=== PATIENT | female | born 1935 | race Caucasian/White ===

== ENCOUNTER → 2016-06-12 | Outpatient (CLI) | payer MEDICARE ==
[~2016-06-12] MED LIST: ATEN-102 PO; DIOV80TA2 PO; RANI150T PO; SIMV10TA OR; SULF1TAB47 PO
[2016-06-12 09:24] LABS: HEMATOCRIT 40.1 % (35.0-46.0); MEAN CELL VOLUME 96.3 FL (80.0-100.0); MEAN CORPUSCULAR HEMOGLOBIN 31.6 PG (27.0-34.0); MEAN CORPUSCULAR HGB CONC 32.8 % (32.0-36.0); PLATELET COUNT 145 TH/MM3 (150-450); RED BLOOD COUNT 4.16 MIL/MM3 (4.00-5.30); RED CELL DISTRIBUTION WIDTH 12.6 % (11.6-17.2); REVIEW FLAG FINAL
[2016-06-12 09:53] LABS: ALKALINE PHOSPHATASE 65 U/L (45-117); ALT (GPT) 26 U/L (10-53); ANION GAP 7 MEQ/L (5-15); AST (GOT) 24 U/L (15-37); BICARBONATE 30.4 MEQ/L (21.0-32.0); BLOOD UREA NITROGEN 22 MG/DL (7-18); CHLORIDE 105 MEQ/L (98-107); GLOMERULAR FILTRATION RATE 67 ML/MIN (>89); GLUCOSE,FASTING 105 MG/DL (74-99); HDL CHOLESTEROL 81.7 MG/DL (40.0-60.0); LDL CHOLESTEROL 93 MG/DL (0-99); LDL CHOLESTEROL DIRECT 114 MG/DL (0-99); POTASSIUM 4.8 MEQ/L (3.5-5.1); SODIUM (NA) 142 MEQ/L (136-145); TOTAL BILIRUBIN ADULT 0.5 MG/DL (0.2-1.0)
== END ==
LOC: PLAB 07:40
PROVIDERS: ATTEND Internal Medicine
DX: I10 Essential (primary) hypertension (principal); E78.5 Hyperlipidemia, unspecified
CPT/HCPCS: 36415; 80053; 80061; 83721; 85027

== ENCOUNTER → 2016-12-07 | Outpatient (CLI) | payer MEDICARE ==
[2016-12-07 09:28] LABS: HEMATOCRIT 36.6 % (35.0-46.0); MEAN CELL VOLUME 95.7 FL (80.0-100.0); MEAN CORPUSCULAR HGB CONC 33.5 % (32.0-36.0); PLATELET COUNT 127 TH/MM3 (150-450); RED BLOOD COUNT 3.82 MIL/MM3 (4.00-5.30); RED CELL DISTRIBUTION WIDTH 12.2 % (11.6-17.2); REVIEW FLAG FINAL; WHITE BLOOD COUNT 4.8 TH/MM3 (4.0-11.0)
[2016-12-07 09:50] LABS: ANION GAP 5 MEQ/L (5-15); AST (GOT) 17 U/L (15-37); BICARBONATE 29.7 MEQ/L (21.0-32.0); BLOOD UREA NITROGEN 22 MG/DL (7-18); CHLORIDE 104 MEQ/L (98-107); GLOMERULAR FILTRATION RATE 76 ML/MIN (>89); GLUCOSE,FASTING 82 MG/DL (74-99); POTASSIUM 4.1 MEQ/L (3.5-5.1); SODIUM (NA) 139 MEQ/L (136-145)
[2016-12-07 09:59] LABS: ALKALINE PHOSPHATASE 65 U/L (45-117); ALT (GPT) 17 U/L (10-53); HDL CHOLESTEROL 69.5 MG/DL (40.0-60.0); LDL CHOLESTEROL 89 MG/DL (0-99); LDL CHOLESTEROL DIRECT 98 MG/DL (0-99); TOTAL BILIRUBIN ADULT 0.5 MG/DL (0.2-1.0)
== END ==
LOC: PLAB 07:50
PROVIDERS: ATTEND Internal Medicine
DX: I10 Essential (primary) hypertension (principal); E78.5 Hyperlipidemia, unspecified
CPT/HCPCS: 36415; 80053; 80061; 83721; 85027

== ENCOUNTER → 2017-06-11 | Outpatient (CLI) | payer MEDICARE ==
[2017-06-11 10:27] LABS: HEMATOCRIT 37.8 % (35.0-46.0); HEMOGLOBIN 12.7 GM/DL (11.6-15.3); MEAN CELL VOLUME 94.3 FL (80.0-100.0); MEAN CORPUSCULAR HEMOGLOBIN 31.6 PG (27.0-34.0); MEAN CORPUSCULAR HGB CONC 33.5 % (32.0-36.0); MEAN PLATELET VOLUME 11.5 FL (7.0-11.0); PLATELET COUNT 128 TH/MM3 (150-450); RED BLOOD COUNT 4.01 MIL/MM3 (4.00-5.30); WHITE BLOOD COUNT 4.9 TH/MM3 (4.0-11.0)
[2017-06-11 10:29] LABS: ALBUMIN 3.8 GM/DL (3.4-5.0); AST (GOT) 18 U/L (15-37); BICARBONATE 30.1 MEQ/L (21.0-32.0); BLOOD UREA NITROGEN 25 MG/DL (7-18); CALCIUM 8.8 MG/DL (8.5-10.1); CHLORIDE 108 MEQ/L (98-107); CHOLESTEROL 187 MG/DL (120-200); CREATININE 0.83 MG/DL (0.50-1.00); GLOMERULAR FILTRATION RATE 66 ML/MIN (>89); GLUCOSE,FASTING 89 MG/DL (74-99); SODIUM (NA) 141 MEQ/L (136-145)
[2017-06-11 10:38] LABS: ALKALINE PHOSPHATASE 69 U/L (45-117); ALT (GPT) 22 U/L (10-53); CHOLESTEROL/ HDL RATIO 2.72 RATIO; FREE T4 1.26 NG/DL (0.76-1.46); HDL CHOLESTEROL 68.7 MG/DL (40.0-60.0); LDL CHOLESTEROL 92 MG/DL (0-99); LDL CHOLESTEROL DIRECT 109 MG/DL (0-99); TOTAL BILIRUBIN ADULT 0.7 MG/DL (0.2-1.0); TOTAL PROTEIN 7.3 GM/DL (6.4-8.2); TRIGLYCERIDES 133 MG/DL (42-150)
== END ==
LOC: PLAB 07:19
PROVIDERS: ATTEND Internal Medicine
DX: I10 Essential (primary) hypertension (principal); E03.9 Hypothyroidism, unspecified
CPT/HCPCS: 36415; 80053; 80061; 83721; 84439; 84443; 85027

== ENCOUNTER 2017-09-30 07:45 | Observation (INO) ==
[2017-09-30 08:52] LABS: Baso % (Auto) 0.6 % (0.0-2.0); Eos # (Auto) 0.1 th/mm3 (0.0-0.4); Eos % (Auto) 2.2 % (0.0-4.0); Hematocrit 40.2 % (35.0-46.0); Lymph # (Auto) 0.7 th/mm3 (1.0-4.8); Lymph % (Auto) 14.8 % (9.0-44.0); Mean Corpuscular HGB Conc 32.2 % (32.0-36.0); Mean Corpuscular Hemoglobin 31.1 pg (27.0-34.0); Mean Corpuscular Volume 96.3 fL (80.0-100.0); Mono # (Auto) 0.3 th/mm3 (0.0-0.9); Mono % (Auto) 5.7 % (0.0-8.0); Neut # (Auto) 3.5 th/mm3 (1.8-7.7); Neut % (Auto) 76.7 % (16.0-70.0); Platelet Count 134 th/mm3 (150-450); Red Blood Count 4.17 mil/mm3 (4.00-5.30); White Blood Count 4.6 th/mm3 (4.0-11.0)
--- NOTE | 2017-09-30 08:54 | ED ---
HPI General Chief Complaint: Arrhythmia/Palpitations Stated Complaint: Palpitations Time Seen by Provider: 09/30/17 08:22 Source: patient Mode of arrival: ambulatory Limitations: no limitations History of Present Illness HPI narrative: Patient is an 82-year-old female who presents the emergency room with complaints of palpitations. Patient reports that she woke up around 1 AM this morning from sleep with palpitations to the left side of her chest. Patient reports that the palpitations were nonradiating in nature, reports that they were persistent so she got up and sat in her chair. Reports that the palpitations lasted about 1-1/2 hours and resolved on its own. During this episode, she did feel "hot" with her symptoms. Patient reports that she did not have any nausea or vomiting with her symptoms. Patient does have history of thyroid problems as well as hypertension and hyperlipidemia, she does not see a anchor tacker. Patient reports that the last time she has the symptoms was 3 months ago, she diagnosed herself with the flu. Related Data Home Medications Medication Instructions Recorded Confirmed aspirin [Aspirin Low Dose] 81 mg PO DAILY 09/30/17 09/30/17 atenolol 50 mg PO DAILY 09/30/17 09/30/17 levothyroxine 100 mcg PO DAILY 09/30/17 09/30/17 ranitidine HCl 300 mg PO DAILY 09/30/17 09/30/17 simvastatin 10 mg PO QPM 09/30/17 09/30/17 Allergies Allergy/AdvReac Type Severity Reaction Status Date / Time lisinopril Allergy Severe Rash Unverified 09/30/17 07:50 Review of Systems Except as stated in HPI: all other systems reviewed are negative [facility] Medical History Medical History GERD (gastroesophageal reflux disease) (Acute) High cholesterol (Acute) Hypertension (Acute) Hypothyroid (Acute) Surgical History Surgical History H/O lumpectomy (Acute) Hx of appendectomy (Acute) Hx of cholecystectomy (Acute) Social History Social History Substance History: No History of Abuse Smoking Status: Never smoker How Often Do You Have a Drink Containing Alcohol: Never Recent Travel in [facility] within the Last 8 Weeks: No Recent Out of Country Travel within the Last 8 Weeks: No Immunization History Tetanus Immunization: >5 Years Hx Influenza Vaccine This Season: Yes Exam Narrative Exam Narrative: GENERAL: NAD SKIN: Focused skin assessment warm/dry. HEAD: Atraumatic. Normocephalic. EYES: Pupils equal and round. No scleral icterus. No injection or drainage. ENT: No nasal bleeding or discharge. Mucous membranes pink and moist. NECK: Trachea midline. No JVD. CARDIOVASCULAR: Regular rate and rhythm. No murmur appreciated. RESPIRATORY: No accessory muscle use. Clear to auscultation. Breath sounds equal bilaterally. GASTROINTESTINAL: Abdomen soft, non-tender, nondistended. Hepatic and splenic margins not palpable. MUSCULOSKELETAL: No obvious deformities. No clubbing. No cyanosis. No edema. NEUROLOGICAL: Awake and alert. No obvious cranial nerve deficits. Motor grossly within normal limits. Normal speech. PSYCHIATRIC: Appropriate mood and affect; insight and judgment normal. Course Initial Documented Vital Signs Temperature 98.5 F 09/30/17 07:46 Pulse Rate 66 09/30/17 07:46 Respiratory Rate 16 09/30/17 07:46 Blood Pressure 228/104 H 09/30/17 07:46 Pulse Oximetry 98 09/30/17 07:46 Last Documented Vital Signs Temperature 98.5 F 09/30/17 07:46 Pulse Rate 50 L 09/30/17 10:00 Respiratory Rate 16 09/30/17 10:00 Blood Pressure 187/77 H 09/30/17 10:00 Pulse Oximetry 98 09/30/17 10:00 Medical Decision Making MDM Narrative Medical decision making narrative: During the course of the patients emergency department visit, the patients history, examination, and differential diagnosis were reviewed with the patient. The patient was placed on a infectious diseases physician with oximetry and frequent blood pressure monitoring. The patient had an IV access obtained and blood work sent for analysis. Patient does have diffuse st segment depressions on her ekg - cardiac enzymes were sent. The patient was initially provided aspirin The patients laboratory studies were reviewed Patient with no complaints in the ER, plan to obs her in the chest pain unit as she does have diffuse st segment depressions on her EKG. Patient is aggreeable to observation Case reviewed with Dr. Leyva who accepts pt to chest pain unit Differential Diagnosis Differential Diagnosis: ACS, arrythmia, electrolyte abnormality, abnormal TSH Medical Records Medical records reviewed: Yes I reviewed the patient's medical records. Lab Data Lab results reviewed: Yes I reviewed the patient's lab results. Result diagrams: 09/30/17 08:35 09/30/17 08:35 Lab Results 09/30/17 09/30/17 09/30/17 Range/Units 08:35 08:35 08:35 CBC w Diff Slide review pending WBC 4.6 (4.0-11.0) th/mm3 RBC 4.17 (4.00-5.30) mil/mm3 Hgb 13.0 (11.6-15.3) gm/dL Hct 40.2 (35.0-46.0) % MCV 96.3 (80.0-100.0) fL MCH 31.1 (27.0-34.0) pg MCHC 32.2 (32.0-36.0) % RDW 12.0 (11.6-17.2) % Plt Count 134 L (150-450) th/mm3 MPV 13.0 H (7.0-11.0) fL Neut % (Auto) 76.7 H (16.0-70.0) % Lymph % (Auto) 14.8 (9.0-44.0) % [place] % (Auto) 5.7 (0.0-8.0) % Eos % (Auto) 2.2 (0.0-4.0) % Baso % (Auto) 0.6 (0.0-2.0) % Neut # (Auto) 3.5 (1.8-7.7) th/mm3 Lymph # (Auto) 0.7 L (1.0-4.8) th/mm3 [place] # (Auto) 0.3 (0.0-0.9) th/mm3 Eos # (Auto) 0.1 (0.0-0.4) th/mm3 Baso # (Auto) 0.0 (0.0-0.2) th/mm3 WBC Differential . Diff Scan Auto diff confirmed Differential Comment . Platelet Estimate Low L (Normal) Platelet Morphology Enlarged H (Normal) PT 10.9 (9.8-11.6) sec INR 1.1 Ratio APTT 22.3 L (24.3-30.1) sec Sodium (136-145) meq/L Potassium (3.5-5.1) meq/L Chloride (98-107) meq/L Carbon Dioxide (21.0-32.0) meq/L Anion Gap (5-15) meq/L BUN (7-18) mg/dL Creatinine (0.50-1.00) mg/dL Estimated GFR (>89) mL/min Random Glucose (74-106) mg/dL Calcium (8.5-10.1) mg/dL Total Bilirubin (0.2-1.0) mg/dL AST (15-37) U/L ALT (10-53) U/L Alkaline Phosphatase (45-117) U/L Total Creatine Kinase (26-192) U/L Troponin I (0.02-0.05) ng/mL B-Natriuretic Peptide 274 H (0-100) pg/mL Total Protein (6.4-8.2) g/dL Albumin (3.4-5.0) g/dL 09/30/17 Range/Units 08:35 CBC w Diff WBC (4.0-11.0) th/mm3 RBC (4.00-5.30) mil/mm3 Hgb (11.6-15.3) gm/dL Hct (35.0-46.0) % MCV (80.0-100.0) fL MCH (27.0-34.0) pg MCHC (32.0-36.0) % RDW (11.6-17.2) % Plt Count (150-450) th/mm3 MPV (7.0-11.0) fL Neut % (Auto) (16.0-70.0) % Lymph % (Auto) (9.0-44.0) % [place] % (Auto) (0.0-8.0) % Eos % (Auto) (0.0-4.0) % Baso % (Auto) (0.0-2.0) % Neut # (Auto) (1.8-7.7) th/mm3 Lymph # (Auto) (1.0-4.8) th/mm3 [place] # (Auto) (0.0-0.9) th/mm3 Eos # (Auto) (0.0-0.4) th/mm3 Baso # (Auto) (0.0-0.2) th/mm3 WBC Differential Diff Scan Differential Comment Platelet Estimate (Normal) Platelet Morphology (Normal) PT (9.8-11.6) sec INR Ratio APTT (24.3-30.1) sec Sodium 142 (136-145) meq/L Potassium 4.0 (3.5-5.1) meq/L Chloride 108 H (98-107) meq/L Carbon Dioxide 27.8 (21.0-32.0) meq/L Anion Gap 6 (5-15) meq/L BUN 20 H (7-18) mg/dL Creatinine 0.81 (0.50-1.00) mg/dL Estimated GFR 68 L (>89) mL/min Random Glucose 96 (74-106) mg/dL Calcium 8.8 (8.5-10.1) mg/dL Total Bilirubin 0.6 (0.2-1.0) mg/dL AST 17 (15-37) U/L ALT 21 (10-53) U/L Alkaline Phosphatase 69 (45-117) U/L Total Creatine Kinase 83 (26-192) U/L Troponin I Less than 0.02 L (0.02-0.05) ng/mL B-Natriuretic Peptide (0-100) pg/mL Total Protein 7.0 (6.4-8.2) g/dL Albumin 3.6 (3.4-5.0) g/dL Imaging Data Attestation: I personally reviewed and interpreted this imaging study as follows : Radiologist's impression: Chest X-Ray 09/30/17 08:28 CONCLUSION: Negative examination. ECG Data EKG Prior to Arrival: No Attestation: I personally reviewed and interpreted this ECG as follows: Prior ECG tracings: available for review Interpretation: EKG at 0757: Sinus patsy at 57bpm, qt/qtc: 397/391, st seg depressions more pronounced when compared to previous Discharge Plan Discharge Disposition Patient Disposition: 30 Still Patient Physicians Team ED Provider: Nelsy Rose Primary Care Provider: Libby Kay Rxs /Orders / Referrals /Forms Prescriptions: No Action simvastatin 10 mg Tablet 10 mg PO QPM RF: 0 aspirin [Aspirin Low Dose] 81 mg Tablet,Delayed Release (Dr/Ec) 81 mg PO DAILY RF: 0 levothyroxine 100 mcg Tablet 100 mcg PO DAILY RF: 0 ranitidine HCl 300 mg Capsule 300 mg PO DAILY RF: 0 atenolol 50 mg Tablet 50 mg PO DAILY RF: 0 Status ED Status: With Doctor
[2017-09-30 09:01] LABS: Chloride 108 meq/L (98-107); Sodium 142 meq/L (136-145)
[2017-09-30 09:04] LABS: Calcium 8.8 mg/dL (8.5-10.1)
[2017-09-30 09:05] LABS: Albumin 3.6 g/dL (3.4-5.0); Anion Gap 6 meq/L (5-15); Blood Urea Nitrogen 20 mg/dL (7-18); Carbon Dioxide 27.8 meq/L (21.0-32.0); Glucose,Random 96 mg/dL (74-106)
[2017-09-30 09:08] LABS: Alanine Aminotransferase 21 U/L (10-53); Aspartate Aminotransferase 17 U/L (15-37); Glomerular Filtration Rate 68 mL/min (>89)
--- NOTE | 2017-09-30 09:09 | XR ---
EXAM DATE: 09/30/2017 9:06 AM EDT AGE/SEX: 82 years / Female INDICATIONS: Chest Pain and palpitations CLINICAL DATA: This is the patient's initial encounter. Patient reports that signs and symptoms have been present for 1 day and indicates a pain score of 6/10. MEDICAL/SURGICAL HISTORY: None. None. COMPARISON: [facility], CHEST PA & LAT, 12/30/2011. . FINDINGS: A single AP view of the chest demonstrates the lungs to be symmetrically aerated without evidence of mass, infiltrate or effusion. The cardiomediastinal contours are unremarkable. Osseous structures a re intact. CONCLUSION: Negative examination. Electronically signed by: Cooper Thomason MD 09/30/2017 9:07 AM EDT
[2017-09-30 09:11] LABS: Alkaline Phosphatase 69 U/L (45-117)
[2017-09-30 09:15] LABS: Activated Partial Thrombo Time 22.3 sec (24.3-30.1); INR 1.1 Ratio; Prothrombin Time 10.9 sec (9.8-11.6)
[2017-09-30 09:42] LABS: Creatine Kinase 83 U/L (26-192)
[2017-09-30] MEDS ORDERED: hydrALAZINE HCl Inj 20 MG/ML Vial IV.PUSH ONE ×2 (11:01→11:02)
[2017-09-30] MEDS ORDERED: hydrALAZINE HCl Inj 20 MG/ML Vial ONE (11:06)
--- NOTE | 2017-09-30 11:08 | P.HP ---
History of Present Illness Primary Care Physician: Libby Kay MD Chief Complaint: Palpitations History of Present Illness: This is a pleasant 81-year-old female patient with a known medical history of hypertension, hypothyroidism and GERD who presented to the ED with complaints of palpitations. Patient states she woke up around 1 AM from sleep with feelings of palpitations in the left side of her chest, she denies any chest pain. Patient does state that the sensation of palpitations radiates up her neck, denies any associated shortness of breath, nausea, vomiting or sweating. Palpitations lasted roughly 1-1/2 hours and then went away on their own. She did check her blood pressure at home with reports of systolic in the 200s which prompted her presentation to the ED. Patient does not follow with the exercise physiologist, PCP is Dr. Kay, last seen roughly 3 weeks ago with no changes to her medications. Patient does state that she did have palpitations roughly 3 months ago and they went away on their own. Patient denies any recent illness including fever, chills, cough, shortness of breath, abdominal pain, nausea, vomiting, diarrhea or dysuria, patient denies any lightheadedness, headache or dizziness. Patient has not had a stress test for over 10 years now. Has not had a recent echocardiogram. - Diagnosis (1) Palpitations Review of Systems All other systems reviewed negative except as stated in HPI PMFSH - History History Provided By: Patient - Medical History Medical History: Medical History (Last Reviewed 09/30/17 @ 08:52 by Nelsy Rose) GERD (gastroesophageal reflux disease) High cholesterol Hypertension Hypothyroid - Surgical History Surgical History: Surgical History (Last Reviewed 09/30/17 @ 08:52 by Nelsy Rose) H/O lumpectomy Hx of appendectomy Hx of cholecystectomy - Tobacco History Smoking Status: Never smoker - Alcohol History How Often Do You Have a Drink Containing Alcohol: Never - Substance Use History Substance History: No History of Abuse - Travel History Recent Travel in the [place] Within the Last 8 Weeks: No Recent Travel Out of the Country Within the Last 8 Weeks: No - Immunization History Tetanus Immunization: >5 Years Hx Influenza Vaccine This Season: Yes Medications and Allergies Active Medications: Active Medications Sodium Chloride (Ns Flush) 2 ml IV.FLUSH UNSCH PRN PRN Reason: FLUSH AFTER USING IV ACCESS Allergies Allergy/AdvReac Type Severity Reaction Status Date / Time lisinopril Allergy Severe Rash Unverified 09/30/17 07:50 Home Medications Medication Instructions Recorded Confirmed Type aspirin [Aspirin Low Dose] 81 mg PO DAILY 09/30/17 09/30/17 History atenolol 50 mg PO DAILY 09/30/17 09/30/17 History levothyroxine 100 mcg PO DAILY 09/30/17 09/30/17 History ranitidine HCl 300 mg PO DAILY 09/30/17 09/30/17 History simvastatin 10 mg PO QPM 09/30/17 09/30/17 History Exam Vital signs: Vital Signs 09/30/17 07:46 09/30/17 08:21 09/30/17 08:50 Temperature 98.5 F Pulse Rate 66 58 L 58 L Respiratory Rate 16 16 Blood Pressure 228/104 H 182/80 H Pulse Oximetry 98 98 09/30/17 08:52 09/30/17 08:56 09/30/17 10:00 Temperature Pulse Rate 50 L 50 L Respiratory Rate 16 16 Blood Pressure 176/84 H 187/77 H Pulse Oximetry 98 98 98 Intake & Output 09/29/17 09/30/17 09/30/17 18:59 06:59 18:59 Weight 67.6 kg Narrative: GENERAL: Well-developed, well-nourished elderly female patient in [facility]. SKIN: Warm and dry. No rash. HEAD: Normocephalic. Atraumatic. EYES: Pupils equal and round. No scleral icterus. No injection or drainage. ENT: No nasal bleeding or discharge. Mucous membranes pink and moist. NECK: Supple. Trachea midline. CARDIOVASCULAR: Sinus bradycardia. S1, S2 noted. No murmur appreciated. No chest pain to palpation. RESPIRATORY: No accessory muscle use. Clear to auscultation. Breath sounds equal bilaterally. GASTROINTESTINAL: Abdomen soft, non-tender, nondistended. Normoactive bowel sounds x4. MUSCULOSKELETAL: No obvious deformities. Extremities without clubbing, cyanosis , or edema. NEUROLOGICAL: Awake and alert. No obvious cranial nerve deficits. Motor grossly within normal limits. 5/5 muscle strength in bilateral upper and lower extremities. Normal speech. PSYCHIATRIC: Appropriate mood and affect; insight and judgment normal. Results - Labs CBC & Chem 7: 09/30/17 08:35 07/30/18 08:35 Labs: Laboratory Results - last 24 hr 09/30/17 09/30/17 09/30/17 08:35 08:35 08:35 CBC w Diff Slide review pending WBC 4.6 RBC 4.17 Hgb 13.0 Hct 40.2 MCV 96.3 MCH 31.1 MCHC 32.2 RDW 12.0 Plt Count 134 L MPV 13.0 H Neut % (Auto) 76.7 H Lymph % (Auto) 14.8 [place] % (Auto) 5.7 Eos % (Auto) 2.2 Baso % (Auto) 0.6 Neut # (Auto) 3.5 Lymph # (Auto) 0.7 L [place] # (Auto) 0.3 Eos # (Auto) 0.1 Baso # (Auto) 0.0 WBC Differential . Diff Scan Auto diff confirmed Differential Comment . Platelet Estimate Low L Platelet Morphology Enlarged H PT 10.9 INR 1.1 APTT 22.3 L Sodium Potassium Chloride Carbon Dioxide Anion Gap BUN Creatinine Estimated GFR Random Glucose Calcium Total Bilirubin AST ALT Alkaline Phosphatase Total Creatine Kinase Troponin I B-Natriuretic Peptide 274 H Total Protein Albumin 09/30/17 08:35 CBC w Diff WBC RBC Hgb Hct MCV MCH MCHC RDW Plt Count MPV Neut % (Auto) Lymph % (Auto) [place] % (Auto) Eos % (Auto) Baso % (Auto) Neut # (Auto) Lymph # (Auto) [place] # (Auto) Eos # (Auto) Baso # (Auto) WBC Differential Diff Scan Differential Comment Platelet Estimate Platelet Morphology PT INR APTT Sodium 142 Potassium 4.0 Chloride 108 H Carbon Dioxide 27.8 Anion Gap 6 BUN 20 H Creatinine 0.81 Estimated GFR 68 L Random Glucose 96 Calcium 8.8 Total Bilirubin 0.6 AST 17 ALT 21 Alkaline Phosphatase 69 Total Creatine Kinase 83 Troponin I Less than 0.02 L B-Natriuretic Peptide Total Protein 7.0 Albumin 3.6 - Imaging Impressions Chest X-Ray 09/30/17 08:28 CONCLUSION: Negative examination. Caprini VTE Risk Assessment Caprini VTE Risk Assessment: Moderate/High Risk (score >= 2) Caprini Risk Assessment Model: Point Value = 1 Point Value = 2 Point Value = 3 Point Value = 5 Age 41-60 Minor surgery BMI > 25 kg/m2 Swollen legs Varicose veins or History of unexplained or recurrent spontaneous Oral contraceptives or hormone replacement Sepsis (< 1 month) Serious lung disease, including pneumonia (< 1 month) Abnormal pulmonary function Acute myocardial infarction Congestive heart failure (< 1 month) History of inflammatory bowel disease Medical patient at bed rest Age 61-74 Arthroscopic surgery Major open surgery (> 45 min) Laparoscopic surgery (> 45 min) Malignancy Confined to bed (> 72 hours) Immobilizing plaster cast Central venous access Age >= 75 History of VTE Family history of VTE Factor V Leiden Prothrombin [id number] Lupus anticoagulant Anticardiolipin antibodies Elevated serum homocysteine Heparin-induced thrombocytopenia Other congenital or acquired thrombophilia Stroke (< 1 month) Elective arthroplasty Hip, pelvis, or leg fracture Acute spinal cord injury (< 1 month) Prophylaxis Regimen: Total Risk Factor Score Risk Level Prophylaxis Regimen 0-1 Low Early ambulation 2 Moderate Order ONE of the following: *Sequential Compression Device (SCD) *Heparin 5000 units SQ BID 3-4 Higher Order ONE of the following medications: *Heparin 5000 units SQ TID *Enoxaparin/Lovenox 40 mg SQ daily (WT < 150 kg, CrCl > 30 mL/min) *Enoxaparin/Lovenox 30 mg SQ daily (WT < 150 kg, CrCl > 10-29 mL/min) *Enoxaparin/Lovenox 30 mg SQ BID (WT < 150 kg, CrCl > 30 mL/min) AND/OR *Sequential Compression Device (SCD) 5 or more Highest Order ONE of the following medications: *Heparin 5000 units SQ TID (Preferred with Epidurals) *Enoxaparin/Lovenox 40 mg SQ daily (WT < 150 kg, CrCl > 30 mL/min) *Enoxaparin/Lovenox 30 mg SQ daily (WT < 150 kg, CrCl > 10-29 mL/min) *Enoxaparin/Lovenox 30 mg SQ BID (WT < 150 kg, CrCl > 30 mL/min) AND *Sequential Compression Device (SCD) Assessment and Plan - Assessment (1) Palpitations Code(s): R00.2 - Palpitations Status: Acute - Plan This is an 82-year-old female who presented to the ED with complaints of palpitations and elevated blood pressure: Uncontrolled hypertension Palpitations suspect secondary to above -Patient is on atenolol 50 mg daily p.o. at home, she did take this morning. -Significant uncontrolled hypertension upon presentation, systolic 228/104. Was given hydralazine push IV in ED. Still significantly elevated. -Will admit to intermediate care for closer monitoring. Add additional dose of hydralazine IV. Started on losartan p.o. Will hold home atenolol for now, patient is bradycardic. -Mildly elevated BNP, 274. Will obtain an echocardiogram, pending at this time. Patient denies any history of known CHF. Will give 1 dose Lasix IV. Monitor intake and output. -Serial EKGs and serial troponins have been ordered for ruling out ACS purposes. Initial troponin flat, continue to monitor trends. -EKG reviewed showing sinus bradycardia, with some ST segment depression seen on her EKG. -Patient was given aspirin in the ED. Will continue daily. -Chest x-ray reviewed, essentially remarkable. Continue cardiac telemetry, monitor for any arrhythmias. Monitor BP trends. -Patient has not had a cardiac stress test for over 10 years now. If ACS ruled out, may undergo a myocardial perfusion scan in AM to further rule out any ischemia. -Patient is stable at this time and agreeable to plan. Hyperlipidemia, chronic: We will continue home statin. Hypothyroidism, chronic: We will continue home levothyroxine. DVT prophylaxis: SCDs. Heparin.
[2017-09-30] MEDS ORDERED: Acetaminophen 500 MG Tablet PO PRN (12:00)
[2017-09-30 12:27] LABS: Creatine Kinase 90 U/L (26-192)
[2017-09-30] MEDS ORDERED: hydrALAZINE HCl Inj 20 MG/ML Vial IV.PUSH PRN (15:37)
[2017-09-30 15:49] LABS: Creatine Kinase 83 U/L (26-192)
[2017-09-30] MEDS: Heparin - SQ 10,000 UNITS/ML Vial SQ SCH (16:39)
[2017-09-30] MEDS: Timolol 0.5% Drops 5 ML Bottle EACH EYE SCH (17:06)
--- NOTE | 2017-09-30 20:17 | ECHRPT ---
Indication: HYPERTENSIVE HEART DISEASE CONCLUSIONS Normal left ventricular size. Wall thickness is normal. The left ventricular systolic function is hyperdynamic with an estimated ejection fraction in the ra nge of 65- 70%. No definite regional wall motion abnormalities are present. There is trace tricuspid valve regurgitation. Trace mitral valve regurgitation. BP: / HR: Rhythm: Sinus MEASUREMENTS (Male / Female) Normal Values Technical Quality:Fair 2D ECHO LV Diastolic Diameter PLAX 4.4 cm 4.2 - 5.9 / 3.9 - 5.3 cm LV Systolic Diameter PLAX 2.7 cm IVS Diastolic Thickness 0.7 cm 0.6 - 1.0 / 0.6 - 0.9 cm LVPW Diastolic Thickness 0.7 cm 0.6 - 1.0 / 0.6 - 0.9 cm LV Relative Wall Thickness 0.3 RV Internal Dim ED PLAX 2.3 cm LVOT Diameter 2.0 cm Aortic Root Diameter 2.9 cm LA Systolic Diameter LX 2.9 cm 3.0 - 4.0 / 2.7 - 3.8 cm M-MODE AV Cusp Separation MM 2.0 cm DOPPLER AV Peak Velocity 154.0 cm/s AV Peak Gradient 9.5 mmHg AV Mean Gradient 4.0 mmHg AV Velocity Time Integral 32.5 cm LVOT Peak Velocity 148.0 cm/s LVOT Peak Gradient 8.8 mmHg LVOT Velocity Time Integral 30.6 cm AV Area Cont Eq vti 3.0 cm AV Area Cont Eq pk 3.0 cm Mitral E Point Velocity 76.5 cm/s Mitral A Point Velocity 54.8 cm/s Mitral E to A Ratio 1.4 LV E' Lateral Velocity 4.6 cm/s Mitral E to LV E' Lateral Ratio 16.7 LV E' Septal Velocity 7.1 cm/s Mitral E to LV E' Septal Ratio 10.7 TR Peak Velocity 273.0 cm/s TR Peak Gradient 29.8 mmHg Right Atrial Pressure 10.0 mmHg Pulmonary Artery Systolic Pressu 39.8 mmHg Right Ventricular Systolic Press 39.8 mmHg PV Peak Velocity 42.9 cm/s PV Peak Gradient 0.7 mmHg FINDINGS LEFT VENTRICLE Normal left ventricular size. Wall thickness is normal. The left ventricular systolic function is hyperdynamic with an estimated ejection fraction in the ra nge of 65- 70%. No definite regional wall motion abnormalities are present. RIGHT VENTRICLE Normal right ventricular size and systolic function. LEFT ATRIUM The left atrial size is normal. RIGHT ATRIUM The right atrial size is normal. ATRIAL SEPTUM No atrial level shunt is demonstrated by color flow Doppler interrogation. AORTA The aortic root and proximal ascending aorta are normal in size on limited imaging. MITRAL VALVE Trace mitral valve regurgitation. AORTIC VALVE Trileaflet aortic valve. No aortic valve stenosis or regurgitation. TRICUSPID VALVE There is trace tricuspid valve regurgitation. PULMONARY VALVE No pulmonary valve regurgitation or stenosis. VESSELS The inferior vena cava is normal in size. PERICARDIUM No pericardial effusion. Dequan Almonte MD (Electronically Signed) Final Date:30 September 2017 20:15
[2017-09-30] MEDS ORDERED: Famotidine 20 MG Tablet PO SCH (21:00)
[2017-09-30] MEDS ORDERED: Heparin - SQ 10,000 UNITS/ML Vial SQ SCH (21:00)
--- NOTE | 2017-09-30 21:27 | ECG ---
Date Performed: 09/30/2017 Time Performed: 11:28:10 PTAGE: 82 years EKG: SINUS BRADYCARDIA MINIMAL ST DEPRESSION BORDERLINE ECG PREVIOUS TRACING : 09/30/2017 07.57 Since the previous tracing, no significant change noted DOCTOR: Reji Mederos Interpretating Date/Time 09/30/2017 21:26:47
--- NOTE | 2017-09-30 21:46 | ECG ---
Date Performed: 09/30/2017 Time Performed: 07:57:29 PTAGE: 82 years EKG: SINUS BRADYCARDIA MODERATE ST DEPRESSION ABNORMAL ECG INTERPRETATION BASED ON A DEFAULT AGE OF 40 YEARS PREVIOUS TRACING : 12/30/2011 10.51 Since the previous tracing, no significant change not ed DOCTOR: Reji Mederos Interpretating Date/Time 09/30/2017 21:45:28
[2017-10-01] MEDS: Heparin - SQ 10,000 UNITS/ML Vial SQ SCH ×2 (00:18→08:12)
[2017-10-01 04:38] VITALS: TEMP 97.9
[2017-10-01] MEDS ORDERED: Levothyroxine 100 MCG Tablet PO SCH (06:00)
--- NOTE | 2017-10-01 08:09 | P.PN ---
Subjective Interval history: 82-year-old quite pleasant female who is seen and examined today in follow-up for chest pain. Patient laying in bed, resting comfortably. She denies any recurrent chest discomfort. Discussed with her her laboratory studies, EKGs. Notified her that the next step would be to rule out any ischemia with stress test and she is in agreement. Notified her that if it is positive then she may need to have further testing to include cardiac catheterization and she does want to pursue further testing at this time. Vital signs are stable, patient remains afebrile Physical Exam Vital signs: Vital Signs 09/30/17 08:21 09/30/17 08:50 09/30/17 08:52 Temperature Pulse Rate 58 L 58 L Respiratory Rate 16 Blood Pressure 182/80 H Pulse Oximetry 98 98 09/30/17 08:56 09/30/17 10:00 09/30/17 11:50 Temperature Pulse Rate 50 L 50 L 60 Respiratory Rate 16 16 18 Blood Pressure 176/84 H 187/77 H 160/82 H Pulse Oximetry 98 98 09/30/17 12:15 09/30/17 12:25 09/30/17 12:29 Temperature 98.1 F Pulse Rate 60 60 60 Respiratory Rate 18 18 Blood Pressure 147/55 H 173/68 H Pulse Oximetry 98 09/30/17 13:00 09/30/17 13:29 09/30/17 14:29 Temperature Pulse Rate 56 L 56 L 62 Respiratory Rate 18 17 36 H Blood Pressure 158/67 H 164/70 H 212/99 H Pulse Oximetry 09/30/17 14:36 09/30/17 16:03 09/30/17 17:00 Temperature 97.9 F Pulse Rate 58 L 62 48 L Respiratory Rate 22 42 H 16 Blood Pressure 187/89 H 132/78 143/68 H Pulse Oximetry 09/30/17 19:32 09/30/17 20:00 10/01/17 00:00 Temperature 97.4 F L 98.1 F Pulse Rate 47 L 47 L 51 L Respiratory Rate 18 24 Blood Pressure 143/55 H 163/69 H Pulse Oximetry 100 100 10/01/17 04:00 Temperature 97.9 F Pulse Rate 50 L Respiratory Rate 20 Blood Pressure 138/60 Pulse Oximetry 100 Intake & Output 09/30/17 10/01/17 10/01/17 18:59 06:59 18:59 Intake Total 720 / 720 120 / 120 Output Total 6 / 6 Balance 720 / 720 114 / 114 Weight 67.8 kg 66.5 kg Intake: Oral 720 / 720 120 / 120 Output: Urine 6 / 6 Other: # Voids 6 Date of Last Bowel Movement 09/29/17 09/29/17 Weight On Admission 67.8 kg Narrative: GENERAL: Well-developed, well-nourished, in no acute distress. alert and orientated HEENT: Head is normocephalic without any lesions or masses noted. Facial features are symmetric. Eyes: Extraocular muscles are intact. Conjunctivae were clear. NECK: Supple without any masses. Trachea midline no deviation. No JVD, CARDIAC: Irregular rhythm, regular rate. S1/S2 are heard. No murmurs gallops or rubs. LUNGS: Clear to auscultation bilaterally. No wheeze, rhonchi or rales. No use of accessory muscles on inspiration or expiration. ABDOMEN: Soft, nontender. Nondistended. Bowel sounds heard in all 4 quadrants. No organomegaly or masses. Negative rebound, negative guarding EXTREMITIES: No edema, pulses are equal bilaterally. No cyanosis or clubbing NEUROLOGY: Mood and affect appear appropriate. Cranial nerves II through XII grossly intact. Moving all extremities, speech is clear Results - Labs CBC & Chem 7: 09/30/17 08:35 09/30/17 08:35 Laboratory Results - last 24 hr 09/30/17 09/30/17 09/30/17 08:35 08:35 08:35 CBC w Diff Slide review pending WBC 4.6 RBC 4.17 Hgb 13.0 Hct 40.2 MCV 96.3 MCH 31.1 MCHC 32.2 RDW 12.0 Plt Count 134 L MPV 13.0 H Neut % (Auto) 76.7 H Lymph % (Auto) 14.8 Florence % (Auto) 5.7 Eos % (Auto) 2.2 Baso % (Auto) 0.6 Neut # (Auto) 3.5 Lymph # (Auto) 0.7 L [place] # (Auto) 0.3 Eos # (Auto) 0.1 Baso # (Auto) 0.0 WBC Differential . Diff Scan Auto diff confirmed Differential Comment . Platelet Estimate Low L Platelet Morphology Enlarged H PT 10.9 INR 1.1 APTT 22.3 L Sodium Potassium Chloride Carbon Dioxide Anion Gap BUN Creatinine Estimated GFR Random Glucose Calcium Total Bilirubin AST ALT Alkaline Phosphatase Total Creatine Kinase Troponin I B-Natriuretic Peptide 274 H Total Protein Albumin 09/30/17 09/30/17 09/30/17 08:35 11:40 15:00 CBC w Diff WBC RBC Hgb Hct MCV MCH MCHC RDW Plt Count MPV Neut % (Auto) Lymph % (Auto) Florence % (Auto) Eos % (Auto) Baso % (Auto) Neut # (Auto) Lymph # (Auto) Florence # (Auto) Eos # (Auto) Baso # (Auto) WBC Differential Diff Scan Differential Comment Platelet Estimate Platelet Morphology PT INR APTT Sodium 142 Potassium 4.0 Chloride 108 H Carbon Dioxide 27.8 Anion Gap 6 BUN 20 H Creatinine 0.81 Estimated GFR 68 L Random Glucose 96 Calcium 8.8 Total Bilirubin 0.6 AST 17 ALT 21 Alkaline Phosphatase 69 Total Creatine Kinase 83 90 83 Troponin I Less than 0.02 L Less than 0.02 L Less than 0.02 L B-Natriuretic Peptide Total Protein 7.0 Albumin 3.6 - Imaging Impressions Chest X-Ray 09/30/17 08:28 CONCLUSION: Negative examination. - Procedures ECHOCARDIOGRAM CONCLUSIONS Normal left ventricular size. Wall thickness is normal. The left ventricular systolic function is hyperdynamic with an estimated ejection fraction in the range of 65- 70%. No definite regional wall motion abnormalities are present. There is trace tricuspid valve regurgitation. Trace mitral valve regurgitation. Assessment and Plan - Assessment (1) Palpitations Code(s): R00.2 - Palpitations Status: Acute - Plan Chest discomfort in a patient with uncontrolled hypertension -Patient was on atenolol at home, however given the patient's bradycardia that has been held -Patient started on Cozaar 50 mg daily, blood pressure is improved -Patient does have increased risk factors to include hypertension, hyperlipidemia, age, postmenopausal without exogenous hormones -Patient has been ruled out for acute coronary event with serial cardiac enzymes that have remained negative -Serial EKGs show sinus bradycardia with borderline ST depressions in lateral lead without any changes -Myocardial perfusion study was performed and indicated unremarkable perfusion study, low risk -Echocardiogram was also performed which did not indicate any acute abnormality. Shows ejection fraction 65-70% with normal systolic function. -Patient continued on aspirin, statin. -Continue cardiac telemetry, monitor for any arrhythmias. Monitor BP trends. Hyperlipidemia, chronic: -Home medication was continued Hypothyroidism, chronic: -Home medication was continued DVT prophylaxis: -Sequential compression devices, subcutaneous heparin. Discharge Planning: Discharge home in stable condition Activity: Ad sejal. Diet: Healthy heart diet Medication per medication reconciliation Follow-up with primary medical doctor in 1 week
[2017-10-01] MEDS: Timolol 0.5% Drops 5 ML Bottle EACH EYE SCH (08:12)
[2017-10-01] MEDS ORDERED: Atenolol 50 MG Tablet PO SCH (09:00)
[2017-10-01] MEDS ORDERED: Regadenoson Inj 0.4 MG/5 ML Syringe IV.PUSH ONE (09:14)
--- NOTE | 2017-10-01 10:39 | NM ---
EXAM DATE: 10/01/2017 10:22 AM EDT AGE/SEX: 82 years / Female INDICATIONS:Angina. . Mid chest pain for one day. CLINICAL DATA: This is the patient's initial encounter. Patient reports that signs and symptoms have been present for 1 day and indicates a pain score of 3/10. MEDICAL/SURGICAL HISTORY: Hypertension. Gastroesophageal reflux disease. Hypothyroidism. Chol ecystectomy. Appendectomy. COMPARISON: No prior exams available for comparison. No external comparison. DOSE: 8.7 mCi Tc 99m Myoview at rest 25.6 mCi [id number] at stress 0.4 mg Lexiscan STRESS SYMPTOMS: Flush and short of breath. EJECTION FRACTION: >70 % TECHNIQUE: The patient underwent pharmacologic stress with infusion of prescribed dose. Continuous ECG tracing was monitored during stress. Gated SPECT imaging was performed after stress and conventi onal SPECT imaging was performed at rest. The examination was performed on a SPECT/CT scanner, both attenuation and non-corrected datasets were reviewed. FINDINGS: Distribution: The maximum perfused segment at stress is in the septal wall. Perfusion Study: The pattern of perfusion at stress is within normal limits. Gated Study: There are intact wall motion and wall thickening without hypokinetic or dyskinetic segm ents. The ejection fraction is calculated at >70%. RISK CATEGORY: Low (<1% Annual Motality Rate) CONCLUSION: Unremarkable myocardial perfusion. Electronically signed by: Mil Odonnell MD 10/01/2017 10:38 AM EDT
[2017-10-01 11:11] VITALS: BP 160/75; PULSE 54; RESP 17
[2017-10-01 12:09] VITALS: O2SAT 98
--- NOTE | 2017-10-01 16:50 | ECG ---
Date Performed: 09/30/2017 Time Performed: 15:12:25 PTAGE: 82 years EKG: SINUS BRADYCARDIA MODERATE ST DEPRESSION ABNORMAL ECG Since PREVIOUS TRACING , no significant change noted PREVIOUS TRACIN09/25/2017 21.29 DOCTOR: Ada Fuller Interpretating Date/Time 10/01/2017 16:50:17
--- NOTE | 2017-10-02 10:37 | TR ---
Date Performed: 10/01/2017 Time Performed: 09:34:40 DOCTOR: Fox Raines DRUG LIST: CLINICAL HISTORY: ANGINA REASON FOR TEST: Angina REASON FOR ENDING: OBSERVATION: CONCLUSION: Lexiscan stress test was performed under standard four minute protocol. Radionuclide was injected one minute prior to ending the test. NS STT electrocardiographic abormalities were pres ent suggestive but not diagnostic of ischemia. Nuclear imaging and interpretation are pending. COMMENTS:
== END 2017-10-01 14:02 | disposition home or self-care (01) ==
LOC: PHED 07:45 → PHEDA 07:45 → PHICU 07:45
PROVIDERS: ADMIT Hospitalist; ATTEND Hospitalist